=== PATIENT | male | born 1960 | race Caucasian/White ===

== ENCOUNTER 2020-12-18 13:37 | Emergency (ER) | payer OTHER ==
[~2020-12-18 13:37] MED LIST: ALLOPURINOL300 MG PO; B6 PO; CETIRIZINE HCL10 MG PO; LISINOPRIL40 MG PO; MICROZIDE12.5 MG PO; PERCOCET 5-3251 EACH PO; PERCOCET 5/325 T1 EA PO; SIMVASTATIN20 MG PO; VITAMIN D1000 UNI1 PO
[2020-12-18 14:12] LABS: HEMOGLOBIN 16.9 gm/dl (14.0-17.5); RED BLOOD COUNT 5.33 M/UL (4.20-5.50); WHITE BLOOD COUNT 9.9 K/UL (4.5-11.0)
[2020-12-18 14:42] LABS: BUN/CREATININE RATIO 18 (0-10)
[2020-12-18] MEDS ORDERED: METOPROLOL TART25 MG PO (16:02)
== END 2020-12-18 16:20 | disposition home or self-care (01) ==
LOC: ER1 13:37
DX: I48.91 Unspecified atrial fibrillation (principal); I10 Essential (primary) hypertension
CPT/HCPCS: 71045; 80053; 82550; 82553; 83874; 84439; 84443; 84484; 85025; 85379; 85610; 93005; 99285

== ENCOUNTER 2020-12-19 11:21 | Emergency (ER) | payer OTHER ==
[~2020-12-19 11:21] MED LIST changes: +METOPROLOL TART25 MG PO
[2020-12-19 13:39] LABS: HEMOGLOBIN 17.4 gm/dl (14.0-17.5); RED BLOOD COUNT 5.48 M/UL (4.20-5.50); WHITE BLOOD COUNT 10.2 K/UL (4.5-11.0)
[2020-12-19 14:02] LABS: BUN/CREATININE RATIO 19 (0-10)
== END 2020-12-19 17:30 | disposition home or self-care (01) ==
LOC: ER1 11:21
PROVIDERS: Nurse Practitioner
DX: I48.91 Unspecified atrial fibrillation (principal); I10 Essential (primary) hypertension; E78.5 Hyperlipidemia, unspecified; Z79.01 Long term (current) use of anticoagulants; Z79.899 Other long term (current) drug therapy; Z87.891 Personal history of nicotine dependence
CPT/HCPCS: 71045; 80053; 82550; 82553; 83874; 83880; 84439; 84443; 84484; 85025; 85379; 85610; 85730; 93005; 96374; 99285

== ENCOUNTER → 2021-01-20 | Outpatient (CLI) | payer OTHER | LOC: ECHO 11:41 → NM 13:00 | DX: R07.9 Chest pain, unspecified (principal); I10 Essential (primary) hypertension; R06.02 Shortness of breath; I48.91 Unspecified atrial fibrillation; I08.3 Combined rheumatic disorders of mitral, aortic and tricuspid valves; R94.39 Abnormal result of other cardiovascular function study | CPT/HCPCS: ECHO; 78452; 93017; 93306; A9502; J2785 ==

== ENCOUNTER → 2021-06-14 | Outpatient (CLI) | payer OTHER | LOC: HEART 5 07:30 | DX: I48.91 Unspecified atrial fibrillation (principal); R07.9 Chest pain, unspecified ==

== ENCOUNTER → 2021-08-30 | Outpatient (CLI) | payer OTHER ==
[~2021-08-30] MED LIST changes: +ASPIRIN CHEWABL81 MG PO; +CLARITIN10 M2 PO; +DIGOX250 MCG PO; +ELIQUIS5 MG PO; +LASIX TAB 20 MG20 MG PO; +RANEXA1000 MG PO; +RANOLAZINE ER500 MG PO; +TRICOR 145 MG145 MG PO; +VITAMIN C1000 MG PO
[2021-08-30 07:49] LABS: HEMOGLOBIN 15.1 gm/dl (14.0-17.5); RED BLOOD COUNT 4.86 M/UL (4.20-5.50); WHITE BLOOD COUNT 7.1 K/UL (4.5-11.0)
== END ==
LOC: CATH 06:29
PROVIDERS: Internal Medicine Cardiovascular Disease
DX: I25.118 Atherosclerotic heart disease of native coronary artery with other forms of angina pectoris (principal); I11.0 Hypertensive heart disease with heart failure; I50.23 Acute on chronic systolic (congestive) heart failure; I42.9 Cardiomyopathy, unspecified; I48.0 Paroxysmal atrial fibrillation; E78.1 Pure hyperglyceridemia; G47.30 Sleep apnea, unspecified
CPT/HCPCS: 80048; 82962; 85025; 85610; 85730; 93005; 99152; C1769; C1894; J0461; J1644; J2250; J3010; J7030; Q9965; Q9967